=== PATIENT | male | born 1950 | race Caucasian/White ===

== ENCOUNTER 2021-09-26 13:11 | Emergency (ER) | payer MEDICARE, BC ==
[2021-09-27 15:34] LABS: SARS-CoV-2 PCR by NAA DETECTED (NotDetected)
== END 2021-09-26 14:00 | disposition home or self-care (01) ==
LOC: BURERS 13:11
DX: U07.1 COVID-19 (principal); I10 Essential (primary) hypertension; E78.5 Hyperlipidemia, unspecified; E03.9 Hypothyroidism, unspecified
CPT/HCPCS: U0003; U0005; 99284